=== PATIENT | male | born 2005 | race Caucasian/White ===

== ENCOUNTER 2024-01-05 10:10 | Emergency (ER) | payer OTHER, SELFPAY ==
--- NOTE | 2024-01-05 10:18 | [facility].EDGENADL ---
Discharge Plan Disposition Chief Complaint: Allergic Reaction Referrals Follow up/Referrals: Provider,Referral, [Primary Care Provider] - See instructions Activity Restrictions/Add. Instructions Additional Instructions/Restrictions: Return to the emergency department for throat swelling difficulty breathing rash nausea or vomiting or if you would like to receive a prescription for an EpiPen. Clinical Impressions Clinical Impression: Allergic reaction Discharge ED Provider: Kori Webb General Adult HPI General Chief complaint: Allergic Reaction Stated complaint: allergic reaction Time Seen by Provider: 01/05/24 10:16 History of Present Illness HPI narrative: Patient is a 18 y old with no significant past medical history presents to the emergency department with a lump in his throat . Patient has a fish allergy in 2 hours prior to developing a lump in his throat had egg rolls that had fish in them. Denies shortness of breath vomiting diarrhea or hives. Notes mild nausea. Patient does not have an EpiPen and refuses to have 1 because he is concerned about medical discharge from the . Related Data Allergies Allergy/AdvReac Type Severity Reaction Status Date / Time Fish Containing Products Allergy Verified 01/05/24 11:00 [facility] Disclaimer: The information contained in this section may have been updated after the patient was seen, as this information can be updated by other users. Social History Smoking Status: Never smoker alcohol intake: never current occupational status: employed Travel in the last 8 weeks: None ROS Obtained: Yes All systems reviewed & no additional complaints except as documented Physical Exam General General appearance: alert and in no apparent distress Head Head exam: atraumatic and normal inspection Eye Eye exam: Present PERRL ENT ENT exam: Present normal exam, normal oropharynx, mucous membranes moist and other (No airway swelling or posterior pharyngeal edema) Neck Neck exam: Present trachea midline; Absent lymphadenopathy Respiratory Respiratory exam: Present normal lung sounds bilaterally Cardiovascular Cardiovascular exam: Present regular rate and normal rhythm Abdominal Exam Abdominal exam: Present soft; Absent tenderness Neurological Exam Neurological exam: Present alert and normal gait Medical Decision Making Elijah Inquiry Pt receiving controlled substance: No Vital Signs: 01/05/24 10:39 01/05/24 11:06 Temperature 98.2 F Temperature Source Oral Pulse Rate 71 Pulse Rate [Left Radial] 73 Respiratory Rate 20 20 Blood Pressure 103/63 L Blood Pressure [Right Arm] 106/70 L Blood Pressure Mean 76 Blood Pressure Mean [Right Arm] 82 02 Sat by Pulse Oximetry 100 99 Oxygen Delivery Method Room Air Orders (Tests/Meds): ED MEDICATIONS Discontinued Medications Generic Name Dose Route Start Last Admin Trade Name Pavan PRN Reason Stop Dose Admin Diphenhydramine HCl 25 mg 01/05/24 10:32 01/05/24 11:06 Diphenhydramine 50mg Capsule PO 01/05/24 10:33 Not Given ONCE ONE Diphenhydramine HCl 25 mg 01/05/24 11:03 01/05/24 11:04 Diphenhydramine 25mg Capsule PO 01/05/24 11:04 25 mg ONCE ONE Administration Famotidine 20 mg 01/05/24 10:32 01/05/24 11:04 Famotidine 20mg Tablet PO 01/05/24 10:33 20 mg ONCE ONE Administration Prednisone 60 mg 01/05/24 10:32 01/05/24 11:04 Prednisone 20mg Tab PO 01/05/24 10:33 60 mg ONCE ONE Administration Medical Decision Narrative: Patient is a 18-year-old with past medical history significant for fish allergy presenting to the emergency department with throat swelling. Upon presentation patient is hemodynamically stable saturating appropriately on room air afebrile no acute distress. No signs of airway compromise. Differential diagnosis includes allergic reaction anaphylaxis Food bolus, lymphadenopathy retropharyngeal abscess. Exam and history most consistent with mild allergic reaction necessitating no further workup as patient has no sore throat full range of motion of neck and no posterior pharyngeal swelling. Patient received Benadryl prednisone and Pepcid with improvement of symptoms. Patient able to tolerate p.o. without difficulty. Deemed appropriate for discharge with strict return precautions. I advised the patient need an EpiPen due to fish allergy however he refused prescription out of fear that this would medically discharge him from the . Critical Care Critical Care Time Critical Care Time: No
[2024-01-05 10:39] VITALS: BP 106/70; PULSE 73; RESP 20; TEMP 36.8; O2SAT 100; BMI 23.1
[2024-01-05] MEDS: FAMOTIDINE 20MG TABLET 20 MG PO (11:04)
[2024-01-05] MEDS: diphenhydrAMINE 25MG CAPSULE 25 MG PO (11:04)
[2024-01-05] MEDS: predniSONE 20MG TAB 60 MG PO (11:04)
[2024-01-05 11:06] VITALS: BP 103/63; PULSE 71; RESP 20; O2SAT 99
[2024-01-05 11:59] VITALS: BP 112/78; PULSE 89; RESP 20; TEMP 36.8; O2SAT 97
== END 2024-01-05 12:01 | disposition home or self-care (01) ==
PROVIDERS: Emergency Provider Student in an Organized Health Care Education/Training Program
DX: T78.40XA Allergy, unspecified, initial encounter (principal)
CPT/HCPCS: 99283